=== PATIENT | male | born 1990 | race Caucasian/White ===

== ENCOUNTER 2019-06-26 13:35 | Inpatient (IN) | payer OTHER ==
[2019-06-26] VITALS (8 sets, daily range): BP systolic 106–149; BP diastolic 73–90
[~2019-06-26] VITALS: Ht 180.3 cm; Wt 84.4 kg
--- NOTE | ~2019-06-26 | EKG ---
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
--- NOTE | ~2019-06-26 | O ---
[place], [place] OPERATIVE NOTE [id number] UNIT #: [id number] ROOM: 407 DOCTOR: YVETTE GEE DPM BIRTHDATE: [birth year] DOS: 06/26/2019 SURGEON: Yvette Gee DPM. INSET CUTTER: Charles Elizabeth DPM, PGY1. PREOPERATIVE DIAGNOSIS: Left open hallux fracture/crush injury. POSTOPERATIVE DIAGNOSIS: Left open hallux fracture/crush injury. PROCEDURES PERFORMED: 1. Left foot incision and drainage. 2. Left partial hallux amputation. 3. Left hallux washout. INDICATIONS FOR PROCEDURE: The patient is a 29-year-old male, who presented to the Emergency Room today 06/26/2019 with an open hallux fracture. The patient had a traumatic injury in which he dropped a log over his steel toed shoes, the steel toed shoes then bent and traumatically fractured the distal half of the left hallux. The patient immediately went to the Emergency Room, where he was seen. Podiatry was consulted. On examination, the distal aspect of the digit was nonviable. IV antibiotics were started. Given the traumatic injury and the nonviable distal portion of the hallux, he is recommended to undergo a left foot I and D, left hallux partial amputation, washout. The patient was amenable to this. He was aware of the potential risks and complications associated with this procedure. No guarantees were made on the outcome. The patient signed the informed consent for the procedure stated above. ANESTHESIA: Monitored anesthesia care with local block consisting of 30 mL of 0.5% Marcaine plain. PHYSICAL EXAMINATION: VASCULAR: Pulses palpable, cap refill to the lesser digits less than 3 seconds, no cap refill was noted to the distal aspect of the left hallux. DERMATOLOGY: Open hallux fracture of the left hallux, distal half of the hallux is completely dislocated and the soft tissue was completely detached. The remaining proximal portion of the hallux appeared healthy and viable. There are no signs of any surrounding erythema and no signs of any purulence or drainage. NEUROLOGY: Gross epicritic sensation is intact to light touch. MUSCULOSKELETAL/ORTHOPEDIC: Left open hallux fracture: Distal half of the hallux is seen and not connected to any soft tissue structures other than the plantar skin. The patient is able to wiggle remaining digits. Foot compartments are soft. Leg compartments are soft with sensation intact. Radiographs showed a comminuted fracture of the distal phalanx of the left hallux. DESCRIPTION OF PROCEDURE: After informed consent was obtained, the patient was brought into the operating room and placed on the operating table in the supine position. At this time, a member of the anesthesia team administered MAC [place], [place] OPERATIVE NOTE NAME: TNOY MICHELE UNIT #: [id number] ROOM: [facility] DOCTOR: YVETTE GEE DPM BIRTHDATE: [birth year] anesthesia while a member of the surgical team blocked the left foot with 30 mL of 0.5% Marcaine plain. At this time, the left lower extremity was scrubbed, prepped, and draped in the usual sterile fashion. At this time, a final timeout was performed, correctly identifying the patient, site, and procedure. At this time, attention was directed to the left hallux. He was noted to have an open hallux fracture with the distal half of the hallux nonviable and hanging only by the plantar lateral skin. There was noted to be a traumatic laceration noted on the dorsal half at the level of the IPJ and extending to the first interdigital space sulcus. At this time, using a #15 blade, a modified fishmouth incision full-thickness incision was made to remove any nonviable tissue. This was made directly down to the bone. At this time, the hallux was then disarticulated at the level of the IPJ. This hallux bone was sent for a gross pathology, labeled left hallux. At this time, continued sharp and blunt dissection was made to expose the remaining proximal phalanx. At this time, using a TPS sagittal saw, approximately 2/3 of the proximal phalanx was then resected and this was to allow for a tension-free closure. This bone was also passed off with the previous specimen. At this time, the skin edges were remodeled and were found to come together well. The area was then copiously lavaged with normal saline, 2 liters. The remaining tissue appeared viable with good capillary refill and healthy bleeding noted. At this time, 2-0 nylon was used in a simple interrupted fashion for a primary closure of this surgical site incision. Skin was found to come together well with tbibro-vi-tw extension and the skin was well coapted. At this time, it was then dressed with Betadine-soaked Adaptic, 4 x 4 gauze, ABD pads, Kerlix, and Baltazar bandages. The patient tolerated the procedure and anesthesia well without complications. The patient was then transported to the postanesthesia care unit with vital signs stable and vascular status intact to the left foot. SPECIMENS: Gross pathology, left hallux. ESTIMATED BLOOD LOSS: 15 mL. PLAN: The patient should be placed in observation for 24 hours of IV antibiotic/Ancef, patient should be nonweightbearing to the left foot. Dressing should stay clean, dry, and intact and should not be changed for the remainder of the admission. If pain control is adequate, the patient will likely DC within 24 hours. [place], [place] OPERATIVE NOTE NAME: TONY MICHELE UNIT #: [id number] ROOM: [facility] DOCTOR: YVETTE GEE DPM BIRTHDATE: [birth year] Dr. YVETTE GEE DPM CM:OPRECORD:OPERATIVE NOTE 190 09 YVETTE GEE DPM 06/29/19 1009 interface
[2019-06-26 14:01] LABS: BASO # 0.1 10*3/uL (0.0-0.1); BASO % 0.6 % (0.0-1.0); EOS # 0.2 10*3/uL (0.0-0.4); EOS % 1.9 % (1.0-4.0); HEMATOCRIT 42.1 % (42.0-52.0); LYMPH % 41.5 % (27.0-41.0); MEAN CELL VOLUME 90.7 fl (80.0-94.0); MEAN CORPUSCULAR HGB 30.2 pg (27.0-31.0); MEAN CORPUSCULAR HGB CONC 33.3 g/dl (33.0-37.0); MEAN PLATELET VOLUME 10.1 fl (9.6-12.3); MONO # 0.9 10*3/uL (0.1-1.0); MONO % 9.1 % (3.0-9.0); NEUT # 4.5 10*3/uL (2.3-7.9); NEUT % 46.7 % (47.0-73.0); PLATELET COUNT AUTOMATED 301 10*3/uL (130-400); RED BLOOD COUNT 4.64 10*6/uL (4.50-5.90); RED CELL DISTRI WIDTH 13.1 % (0-14.5); WHITE BLOOD COUNT 9.7 10*3/uL (4.8-10.8)
--- NOTE | 2019-06-26 14:04 | NUR ---
PT DOES HAVE FULL SENSATION OF HIS LEFT FOOT EXCEPT FOR THE PART THAT IS OBVIOUSLY AMPUTATED.
--- NOTE | 2019-06-26 14:18 | NUR ---
WOUND NOW HAS STERILE WATER SOAKED GAUZE ON TO KEEP THE AREA WET PER PODIATRY ORDERS.
[2019-06-26 14:19] LABS: ALBUMIN 4.4 gm/dl (3.1-4.5); ALKALINE PHOSPHATASE 85 U/L (45-117); BUN 12 mg/dl (7-24); CHLORIDE 104 mmol/L (98-107); CREATININE 1.12 mg/dL (0.70-1.30); POTASSIUM 3.5 mmol/L (3.5-5.1); SGOT/AST 23 IU/L (3-35); SGPT/ALT 32 U/L (12-78); SODIUM 137 mmol/L (136-145); TOTAL PROTEIN 8.1 gm/dL (6.4-8.2)
[2019-06-26 14:37] LABS: ACT PARTIAL THROMBO TIME 23.1 SECONDS (20.0-32.1); INTERNATIONAL NORM RATIO 0.9 (2.0-3.5)
--- NOTE | 2019-06-26 17:20 | NUR ---
A 29, admitted to , under the services of ANGEL Villafana DO with a diagnosis of TRAUMATIC AMPUTATION OF LEFT GREAT TOE. Chief complaint is WOUND LEFT GREAT TOE. Patient arrived via stretcher from ER. Monitor applied. Initial assessment completed. Vital signs taken and recorded. ANGEL VILLAFANA DO notified of admission to the unit. Orders received. See assessment for past medical history, medications and allergies. Patient and/or family oriented to unit. [address] visitation policy reviewed. Clothing/patient valuable form completed. SHAAN LLOYD
--- NOTE | 2019-06-26 19:20 | NUR ---
PATIENT BACK FROM SURGERY. VOICES NO COMPLAINTS AT THIS TIME. FAMILY AT BEDSIDE.
[2019-06-26] MEDS ORDERED: TRAMADOL HCL50 MG PO (19:24)
[2019-06-26] MEDS ORDERED: DOXYCYCLINE100 M3 PO (19:26)
[2019-06-26] MEDS ORDERED: XARELTO10 MG PO (19:26)
[2019-06-27] VITALS: BP 115/62
--- NOTE | 2019-06-27 06:30 | NUR ---
PATIENT C/O L FOOT PAIN. RATES 11/02. MEDICATED WITH ULTRAM WILL CHECK EFFECTIVENESS.
[2019-06-27 07:06] LABS: BASO % 0.4 % (0.0-1.0); EOS # 0.2 10*3/uL (0.0-0.4); EOS % 1.5 % (1.0-4.0); HEMATOCRIT 41.6 % (42.0-52.0); HEMOGLOBIN 13.4 g/dl (14.0-18.0); LYMPH # 2.4 10*3/uL (1.3-4.4); LYMPH % 22.4 % (27.0-41.0); MEAN CELL VOLUME 93.5 fl (80.0-94.0); MEAN CORPUSCULAR HGB 30.1 pg (27.0-31.0); MEAN CORPUSCULAR HGB CONC 32.2 g/dl (33.0-37.0); MEAN PLATELET VOLUME 10.5 fl (9.6-12.3); MONO # 1.2 10*3/uL (0.1-1.0); MONO % 10.9 % (3.0-9.0); NEUT # 6.8 10*3/uL (2.3-7.9); NEUT % 64.5 % (47.0-73.0); PLATELET COUNT AUTOMATED 281 10*3/uL (130-400); RED BLOOD COUNT 4.45 10*6/uL (4.50-5.90); RED CELL DISTRI WIDTH 13.4 % (0-14.5); WHITE BLOOD COUNT 10.5 10*3/uL (4.8-10.8)
[2019-06-27 07:13] LABS: ACT PARTIAL THROMBO TIME 25.8 SECONDS (20.0-32.1); INTERNATIONAL NORM RATIO 0.9 (2.0-3.5)
[2019-06-27 07:33] LABS: ALBUMIN 3.8 gm/dl (3.1-4.5); BUN 11 mg/dl (7-24); CHLORIDE 109 mmol/L (98-107); CHOLESTEROL 161 mg/dL (<200); CREATININE 1.06 mg/dL (0.70-1.30); PHOSPHOROUS 2.9 mg/dL (2.5-4.9); SGOT/AST 17 IU/L (3-35); SGPT/ALT 25 U/L (12-78); SODIUM 141 mmol/L (136-145); TRIGLYCERIDES 51 mg/dl (<150); VLDL CHOLESTEROL 10 mg/dL (6-40)
[2019-06-27 07:40] LABS: ALKALINE PHOSPHATASE 77 U/L (45-117); FREE T4 1.11 ng/dl (0.76-1.46); HDL CHOLESTEROL 62 mg/dl (40-60); LDL CHOLESTEROL 89 mg/dL (9-159); TOTAL PROTEIN 7.3 gm/dL (6.4-8.2)
[2019-06-27 07:56] LABS: POTASSIUM 4.7 mmol/L (3.5-5.1)
[2019-06-27 08:00] VITALS: BP 139/88
[2019-06-27 08:44] LABS: VITAMIN D, 25-HYDROXY 34.3 ng/mL (30-100)
[2019-06-27 12:00] VITALS: BP 131/90
[2019-06-27 16:00] VITALS: BP 127/80
--- NOTE | 2019-06-27 16:44 | NUR ---
PT DISCHARGED AT THIS TIME. IV REMOVED AND PRESSURE DRESSING APPLIED. HEART MONITOR RETURNED TO FLOOR. VERBALIZED UNDERSTANDING OF DISCHARGE INSTRUCTIONS.
== END 2019-06-27 16:44 | disposition home or self-care (01) | DRG 908 ==
LOC: ED 13:35 → EDHOLD 14:29 → 4E 15:01
PROVIDERS: Internal Medicine; Physician Assistant; ADMIT Emergency Medicine
PROC: 0Y6N0Z9 Detachment at Left Foot, Partial 1st Ray, Open Approach (ICD-10-PCS; principal; 2019-06-26)
DX: S98.122A Partial traumatic amputation of left great toe, initial encounter (principal); Q26.2 Total anomalous pulmonary venous connection; X58.XXXA Exposure to other specified factors, initial encounter; D72.820 Lymphocytosis (symptomatic); R73.9 Hyperglycemia, unspecified; R00.0 Tachycardia, unspecified; Z86.79 Personal history of other diseases of the circulatory system; Y93.89 Activity, other specified; Y92.89 Other specified places as the place of occurrence of the external cause; Y99.8 Other external cause status

== ENCOUNTER 2022-11-03 15:27 | Emergency (ER) | payer OTHER ==
[~2022-11-03] VITALS: Ht 182.8 cm; Wt 80.7 kg
[~2022-11-03 15:27] MED LIST: DOXYCYCLINE100 M3 PO; TRAMADOL HCL50 MG PO; XARELTO10 MG PO
[2022-11-03 15:45] LABS: BASO # 0.1 10*3/uL (0.0-0.1); BASO % 0.6 % (0.0-1.0); EOS # 0.1 10*3/uL (0.0-0.4); EOS % 1.6 % (1.0-4.0); HEMATOCRIT 42.2 % (42.0-52.0); LYMPH # 3.5 10*3/uL (1.3-4.4); LYMPH % 39.6 % (27.0-41.0); MEAN CELL VOLUME 92.7 fl (80.0-94.0); MEAN CORPUSCULAR HGB 30.5 pg (27.0-31.0); MEAN CORPUSCULAR HGB CONC 32.9 g/dl (33.0-37.0); MEAN PLATELET VOLUME 10.2 fl (9.6-12.3); MONO # 0.9 10*3/uL (0.1-1.0); MONO % 10.5 % (3.0-9.0); NEUT # 4.2 10*3/uL (2.3-7.9); NEUT % 47.5 % (47.0-73.0); PLATELET COUNT AUTOMATED 287 10*3/uL (130-400); RED BLOOD COUNT 4.55 10*6/uL (4.50-5.90); RED CELL DISTRI WIDTH 14.1 % (0-14.5); WHITE BLOOD COUNT 8.9 10*3/uL (4.8-10.8)
[2022-11-03 15:57] LABS: ACT PARTIAL THROMBO TIME 28.2 SECONDS (20.0-32.1)
[2022-11-03 16:37] LABS: ALKALINE PHOSPHATASE 73 U/L (46-116); BUN 9 mg/dl (9-23); CHLORIDE 106 mmol/L (98-107); POTASSIUM 4.2 mmol/L (3.4-5.1); SGPT/ALT 31 U/L (10-49); TOTAL PROTEIN 7.1 gm/dL (6.0-8.0)
[2022-11-03] MEDS ORDERED: LOPRESSOR25 MG PO (16:42)
== END 2022-11-03 16:45 | disposition home or self-care (01) ==
LOC: ED 15:27
PROVIDERS: Emergency Medicine
DX: I47.1 Supraventricular tachycardia (principal); Z98.890 Other specified postprocedural states